=== PATIENT | male | born 1945 | race Caucasian/White ===

== ENCOUNTER 2018-11-23 10:48 | Emergency (ER) | payer MEDICARE, OTHER ==
[~2018-11-23] VITALS: Ht 182.9 cm; Wt 102.1 kg
[~2018-11-23 10:48] MED LIST: AMLO5 PO; LISI5 PO; SUCR1 PO; SUMA25 PO; Ultram50 MG PO
[2018-11-23] MEDS ORDERED: DULO30 PO (12:50)
[2018-11-23] MEDS ORDERED: METO50 PO (12:50)
[2018-11-23] MEDS ORDERED: Imitrex50 MG (12:51)
[2018-11-23] MEDS ORDERED: TAMS.4ER PO (12:52)
[2018-11-23] MEDS ORDERED: Hytrin2 MG PO (12:52)
== END 2018-11-23 12:59 | disposition home or self-care (01) ==
LOC: ER 10:48
DX: N43.3 Hydrocele, unspecified (principal); Z88.6 Allergy status to analgesic agent; Z79.899 Other long term (current) drug therapy
CPT/HCPCS: 76870; 99284-25

== ENCOUNTER 2019-08-04 12:37 | Emergency (ER) | payer MEDICARE, OTHER ==
[~2019-08-04] VITALS: Ht 182.9 cm; Wt 106.6 kg
[~2019-08-04 12:37] MED LIST changes: +DULO30 PO; +Hytrin2 MG PO; +Imitrex50 MG; +METO50 PO; +TAMS.4ER PO
[2019-08-04 13:31] LABS: Source, Urine Clean Catch
[2019-08-04 13:35] LABS: Bilirubin, Urine Neg (Neg); Blood, Urine 2+ (Neg); Glucose Qualitative, Urine 1+ (Neg); Ketones, Urine Neg (Neg); Leukocyte Esterase, Urine 1+ (Neg); Nitrite, Urine Neg (Neg); Protein, Urine Neg (Neg); Urobilinogen, Urine NORM (Normal)
[2019-08-04 13:37] LABS: BASOPHILS ABSOLUTE AUTO 0.03 K/mm3 (0.00-0.23); BASOPHILS PERCENT AUTO 0 % (0-2); EOSINOPHILS ABSOLUTE AUTO 0.19 K/mm3 (0.00-0.68); EOSINOPHILS PERCENT AUTO 2 % (0-6); Hematocrit 43.8 % (37.0-53.0); Hemoglobin 14.3 g/dL (13.5-17.5); IMMATURE GRAN ABSOLUTE AUTO 0.06 K/mm3 (0.00-0.10); IMMATURE GRAN PERCENT AUTO 1 % (0-1); LYMPHOCYTES PERCENT AUTO 11 % (21-46); MONOCYTES ABSOLUTE AUTO 0.72 K/mm3 (0.16-1.47); MONOCYTES PERCENT AUTO 7 % (4-13); Mean Corpuscular HGB Conc 32.6 g/dL (31.5-36.5); Mean Corpuscular Volume 92 fL (80-100); Mean Platelet Volume 10.3 fL (9.1-12.4); NEUTROPHILS ABSOLUTE AUTO 8.59 K/mm3 (1.96-9.15); NEUTROPHILS PERCENT AUTO 80 % (41-73); Platelet Count 229 K/mm3 (150-400); RDW Coefficient Variation 12.9 % (11.7-14.2); RDW Standard Deviation 43.9 fL (35.1-46.3); Red Blood Cell Count 4.76 M/mm3 (4.30-5.90); White Blood Cell Count 10.79 K/mm3 (4.00-11.30)
[2019-08-04 13:46] LABS: Appearance, Urine Clear (Clear); Color, Urine Yellow (P-Yellow)
[2019-08-04 13:47] LABS: Bacteria Mod /hpf; Squamous Epithelial Cells Mod /hpf (Few)
[2019-08-04 14:02] LABS: Alanine Aminotransfer (ALT/SGP 22 U/L (12-78); Albumin, Blood 3.1 g/dL (3.4-5.0); Albumin/Globulin Ratio 0.7 (0.8-1.8); Alk Phos 69 U/L (50-136); Anion Gap 7 mmol/L (6-16); Aspartate Aminotrans (AST/SGOT 13 U/L (12-37); Bilirubin, Total 0.3 mg/dL (0.1-1.0); Blood Urea Nitrogen 16 mg/dL (8-24); Bun/Creatinine Ratio 21.4 (12.0-20.0); CO2, Blood 26 mmol/L (21-32); Calcium, Blood 8.8 mg/dL (8.5-10.1); Chloride, Blood 109 mmol/L (98-108); Creatinine, Blood 0.75 mg/dL (0.60-1.20); Globulin, Blood 4.2 g/dL (2.2-4.0); Glomerular Filtration Rate >60 (60-); Glucose, Blood 126 mg/dL (70-99); Potassium, Blood 3.5 mmol/L (3.5-5.5); Sodium, Blood 142 mmol/L (136-145); Total Protein, Blood 7.3 g/dL (6.4-8.2)
== END 2019-08-04 18:00 | disposition home or self-care (01) ==
LOC: ER 12:37
PROVIDERS: Physician Assistant
DX: N45.3 Epididymo-orchitis (principal)
CPT/HCPCS: 36415; 76870; 80053; 81001; 85025; 87086; 99284-25

== ENCOUNTER 2019-09-27 17:10 | Emergency (ER) | payer OTHER, MEDICARE ==
[~2019-09-27] VITALS: Ht 182.9 cm; Wt 104.3 kg
[2019-09-27] MEDS ORDERED: SPIR25 PO (17:56)
[2019-09-27] MEDS ORDERED: THERA-D2000 UNIT PO (17:56)
[2019-09-27] MEDS ORDERED: Glucosamine H1500 MG PO (17:57)
[2019-09-27] MEDS ORDERED: CO Q10100 MG PO (17:57)
[2019-09-27] MEDS ORDERED: ASCO500 PO (17:57)
[2019-09-27] MEDS ORDERED: Norco 7.5-3251 EACH PO (18:50)
== END 2019-09-27 19:09 | disposition home or self-care (01) ==
LOC: ER 17:10
DX: S20.211A Contusion of right front wall of thorax, initial encounter (principal); S70.11XA Contusion of right thigh, initial encounter; Z85.51 Personal history of malignant neoplasm of bladder; Z88.8 Allergy status to other drugs, medicaments and biological substances; Z79.899 Other long term (current) drug therapy; V84.0XXA Driver of special agricultural vehicle injured in traffic accident, initial encounter
CPT/HCPCS: 36415; 71045; 73552; 73610; 96374; 99284-25; J1170

== ENCOUNTER 2020-02-18 12:12 | Emergency (ER) | payer OTHER, MEDICARE ==
[~2020-02-18] VITALS: Ht 182.9 cm; Wt 104.3 kg
[~2020-02-18 12:12] MED LIST changes: +ASCO500 PO; +CO Q10100 MG PO; +Glucosamine H1500 MG PO; +Norco 7.5-3251 EACH PO; +SPIR25 PO; +THERA-D2000 UNIT PO
== END 2020-02-18 14:20 | disposition home or self-care (01) ==
LOC: ER 12:12
DX: S61.310A Laceration without foreign body of right index finger with damage to nail, initial encounter (principal); Z88.6 Allergy status to analgesic agent; Z79.899 Other long term (current) drug therapy; Z87.891 Personal history of nicotine dependence; W31.2XXA Contact with powered woodworking and forming machines, initial encounter
CPT/HCPCS: 99282-25

== ENCOUNTER → 2021-06-04 | Outpatient (CLI) | payer MEDICARE, OTHER ==
[2021-06-04 13:58] LABS: BASOPHILS ABSOLUTE AUTO 0.03 K/mm3 (0.00-0.23); BASOPHILS PERCENT AUTO 0 % (0-2); EOSINOPHILS ABSOLUTE AUTO 0.11 K/mm3 (0.00-0.68); EOSINOPHILS PERCENT AUTO 2 % (0-6); Hematocrit 47.4 % (37.0-53.0); Hemoglobin 16.4 g/dL (13.5-17.5); IMMATURE GRAN ABSOLUTE AUTO 0.02 K/mm3 (0.00-0.10); IMMATURE GRAN PERCENT AUTO 0 % (0-1); LYMPHOCYTES ABSOLUTE AUTO 1.71 K/mm3 (0.84-5.20); LYMPHOCYTES PERCENT AUTO 25 % (21-46); MONOCYTES ABSOLUTE AUTO 0.47 K/mm3 (0.16-1.47); MONOCYTES PERCENT AUTO 7 % (4-13); Mean Corpuscular HGB 31.2 pg (26.0-34.0); Mean Corpuscular HGB Conc 34.6 g/dL (31.5-36.5); Mean Corpuscular Volume 90 fL (80-100); Mean Platelet Volume 9.8 fL (9.1-12.4); NEUTROPHILS ABSOLUTE AUTO 4.44 K/mm3 (1.96-9.15); NEUTROPHILS PERCENT AUTO 66 % (41-73); Platelet Count 202 K/mm3 (150-400); RDW Coefficient Variation 12.8 % (11.7-14.2); Red Blood Cell Count 5.25 M/mm3 (4.30-5.90); White Blood Cell Count 6.78 K/mm3 (4.00-11.30)
[2021-06-04 14:11] LABS: Alanine Aminotransfer (ALT/SGP 78 U/L (12-78); Albumin/Globulin Ratio 1.1 (0.8-1.8); Alk Phos 60 U/L (40-126); Anion Gap 9 mmol/L (6-16); Aspartate Aminotrans (AST/SGOT 38 U/L (12-37); Bilirubin, Total 0.6 mg/dL (0.1-1.0); Blood Urea Nitrogen 17 mg/dL (8-24); Bun/Creatinine Ratio 19.5 (12.0-20.0); CO2, Blood 29 mmol/L (21-32); Calcium, Blood 9.4 mg/dL (8.5-10.1); Chloride, Blood 103 mmol/L (98-108); Creatinine, Blood 0.87 mg/dL (0.60-1.20); Globulin, Blood 3.6 g/dL (2.2-4.0); Glomerular Filtration Rate >60 (60-); Glucose, Blood 104 mg/dL (70-99); Potassium, Blood 4.1 mmol/L (3.5-5.5); Sodium, Blood 141 mmol/L (136-145); Total Protein, Blood 7.6 g/dL (6.4-8.2)
== END | disposition home or self-care (01) ==
LOC: LAB SHORT 13:52 → LAB 13:52
PROVIDERS: Physician Assistant
DX: R10.9 Unspecified abdominal pain (principal)
CPT/HCPCS: 80053; 83690; 85025

== ENCOUNTER 2021-07-13 17:13 | Emergency (ER) | payer MEDICARE, OTHER ==
[~2021-07-13] VITALS: Ht 182.9 cm; Wt 104.3 kg
[2021-07-13] MEDS ORDERED: CEPH500 PO (23:23)
[2021-07-13] MEDS ORDERED: Norco 5-325 Ta1 EACH PO (23:23)
== END 2021-07-13 23:30 | disposition home or self-care (01) ==
LOC: ER 17:13
DX: S62.633B Displaced fracture of distal phalanx of left middle finger, initial encounter for open fracture (principal); S61.213A Laceration without foreign body of left middle finger without damage to nail, initial encounter; S61.215A Laceration without foreign body of left ring finger without damage to nail, initial encounter; W26.9XXA Contact with unspecified sharp object(s), initial encounter
CPT/HCPCS: 12042; 29130; 73130; 99283-25; A9270

== ENCOUNTER 2023-11-27 19:38 | Emergency (ER) | payer MEDICARE, OTHER ==
[~2023-11-27] VITALS: Ht 182.9 cm; Wt 79.4 kg
[~2023-11-27 19:38] MED LIST changes: +ALBU90OI; +ASPI81CH PO; +BUME1; +CEPH500 PO; +Norco 5-325 Ta1 EACH PO; +SPIRIVA RESPIMAT4 G3 INH
[2023-11-27 19:40] VITALS: BP 151/79
== END 2023-11-27 20:44 | disposition home or self-care (01) ==
LOC: ER 19:38
DX: S60.212A Contusion of left wrist, initial encounter (principal); X50.0XXA Overexertion from strenuous movement or load, initial encounter; Z88.1 Allergy status to other antibiotic agents; Z79.899 Other long term (current) drug therapy; Z79.82 Long term (current) use of aspirin; Z87.891 Personal history of nicotine dependence
CPT/HCPCS: 29125; 73110; 99283-25

== ENCOUNTER → 2024-02-14 | Outpatient (CLI) | payer MEDICARE, OTHER | END | disposition home or self-care (01) | LOC: LAB SHORT 12:57 → LAB 12:57 | DX: R30.0 Dysuria (principal); R35.0 Frequency of micturition | CPT/HCPCS: 87077; 87086; 87186 ==

== ENCOUNTER → 2024-08-16 | Outpatient (CLI) | payer MEDICARE, OTHER ==
[2024-08-16 10:27] LABS: Source, Urine Clean Catch
[2024-08-16 10:55] LABS: Appearance, Urine Clear (Clear); Bilirubin, Urine Neg (Neg); Blood, Urine Neg (Neg); Color, Urine Yellow (P-Yellow); Glucose Qualitative, Urine Neg (Neg); Ketones, Urine Neg (Neg); Leukocyte Esterase, Urine 1+ (Neg); Nitrite, Urine Neg (Neg); Protein, Urine 1+ (Neg); Specific Gravity, Urine 1.025 (1.003-1.022); Urobilinogen, Urine NORM (Normal)
[2024-08-16 11:01] LABS: Bacteria Few /hpf; Calcium Oxalate Crystals Few /hpf; Red Blood Cells, Urine 0-2 /hpf (0-2); Squamous Epithelial Cells Rare /hpf (Few)
== END ==
LOC: LAB 09:30 → LAB SHORT 09:30
PROVIDERS: Nurse Practitioner Family
DX: R39.9 Unspecified symptoms and signs involving the genitourinary system (principal)
CPT/HCPCS: 81001; 87086